=== PATIENT | female | born 1980 | race Two or more races ===

== ENCOUNTER 2024-11-23 22:15 | Emergency (ER) | payer OTHER ==
[~2024-11-23] VITALS: Ht 170.2 cm; Wt 117.9 kg
[~2024-11-23 22:15] MED LIST: CLARITIN10 MG PO; FERROUSUL325 ( 65 ) PO; FOLIC ACID1 MG PO; INTEGRA PLUS C1 EACH PO; MUCINEX600 MG PO; PEPCID40 MG PO; ZOFRAN4 MG PO
[2024-11-24] MEDS ORDERED: TRAMADOL HCL 50 MG TABLET PO ONE (08:15)
[2024-11-24] MEDS ORDERED: NORFLEX100MG PO (09:34)
== END 2024-11-24 09:38 | disposition home or self-care (01) ==
LOC: ER 22:17
DX: S90.31XA Contusion of right foot, initial encounter (principal); X58.XXXA Exposure to other specified factors, initial encounter; Y93.89 Activity, other specified; Y92.89 Other specified places as the place of occurrence of the external cause; Y99.9 Unspecified external cause status